=== PATIENT | male | born 1960 | race Caucasian/White ===

== ENCOUNTER 2018-11-11 11:54 | Emergency (ER) | payer OTHER ==
[~2018-11-11] VITALS: Ht 182.9 cm; Wt 103.4 kg
[~2018-11-11 11:54] MED LIST: AMARYL1 MG PO; CLONAZEPAM 1 MG1 M1 PO; FENOFIBRATE160 MG PO; GLUCOPHAGE XR500 MG PO; KOMBIGLYZE XR1 EAC2; NORCO 5-325 TA1 EACH PO; NORTRIPTYLINE H25 M3 PO; PRAVACHOL80 MG; UNICOMPLEX M TA1 TA1
[2018-11-11] MEDS ORDERED: JARDIANCE10 MG PO (12:00)
[2018-11-11 12:19] LABS: ABSOLUTE BASOPHILS 0.1 thou/uL (0.0-0.2); ABSOLUTE EOSINOPHILS 0.3 thou/uL (0.0-0.7); ABSOLUTE LYMPHOCYTES 1.8 thou/uL (0.8-5.3); ABSOLUTE MONOCYTES 0.7 thou/uL (0.0-1.2); ABSOLUTE NEUTROPHILS 4.1 thou/uL (1.6-8.1); BASOPHILS 0.9 %; EOSINOPHILS 3.7 %; HEMATOCRIT 47.1 % (42.0-52.0); HEMOGLOBIN 15.9 gm/dL (14.0-18.0); LYMPHOCYTES 25.9 %; MCH 30.4 pg (26.0-34.0); MCHC 33.7 g/dL (28.0-37.0); MCV 90.4 fL (80.0-100.0); MONOCYTES 9.7 %; MPV 8.2 fl. (7.2-11.1); NUCLEATED RBCS 0 /100WBC; PLATELET COUNT* 234 thou/uL (150-400); POLYS 59.8 %; RBC 5.21 mil/uL (4.50-6.00); RDW-CV 13.7 % (10.5-14.5); WBC 6.9 thou/uL (4.0-11.0)
[2018-11-11 12:31] LABS: PROTIME 10.6 Seconds (9.20-11.50)
[2018-11-11 12:35] LABS: ANION GAP 11 mmol/L (7-16); BUN 23 mg/dL (7-18); CALCIUM 9.5 mg/dL (8.5-10.1); CHLORIDE 105 mmol/L (98-107); CO2 23 mmol/L (21-32); CREATININE 1.3 mg/dL (0.6-1.3); GLUCOSE 147 mg/dL (70-99); SODIUM 139 mmol/L (136-145)
[2018-11-11 12:43] LABS: ALBUMIN 4.2 g/dL (3.4-5.0); ALKALINE PHOSPHATASE 45 U/L (46-116); LIPASE 516 U/L (73-393); NT-PRO BRAIN NAT PEPTIDE 10 pg/mL (<300); SGOT 26 U/L (15-37); SGPT 68 U/L (30-65); TOTAL BILIRUBIN 0.5 mg/dL (<0.1-1.0); TOTAL PROTEIN 7.4 g/dL (6.4-8.2); TROPONIN-I LEVEL <0.06 ng/mL (<0.06)
[2018-11-11 14:22] VITALS: BP 146/82
--- NOTE | 2018-11-13 13:08 | EKG ---
[place] [address] ELECTROCARDIOGRAM REPORT Name: CONSTANCE GRECO [id number] Admission: 11/11/18 Attend Phys: Discharge: 11/11/18 Date of : 56 Report #: [id number] THIS REPORT FOR: //name// [facility] ED Test Date: 2018-11-11 Test Time: 11:57:26 Pat Name: CONSTANCE GRECO Department: Room: Gender: M [employer]onics Technician: : 1960 Requested By: Geovanni Valadez Order Number: [id number] MD: Ramu Olivares Measurements Intervals [employer] Rate: 80 P: 48 PA: 160 QRS: -2 QRSD: 91 T: 63 QT: 354 QTc: 409 Interpretive Statements Sinus rhythm Minimal ST elevation, anterior leads Compared to ECG 05/31/2016 22:12:23 no change Electronically Signed On 11-13-2018 13:08:02 CDT by Ramu Olivares [email or web address] <ELECTRONICALLY SIGNED> By: Ramu Olivares MD, [facility] 11/13/18 1308 1157 1157 Ramu Olivares MD, FACC /EPI
== END 2018-11-11 14:23 | disposition home or self-care (01) ==
LOC: M.ERS 11:54
PROVIDERS: Emergency Medicine
DX: R07.89 Other chest pain (principal); F41.9 Anxiety disorder, unspecified; F32.9 Major depressive disorder, single episode, unspecified; E11.9 Type 2 diabetes mellitus without complications; Z90.89 Acquired absence of other organs; Z90.49 Acquired absence of other specified parts of digestive tract; Z86.79 Personal history of other diseases of the circulatory system; Z82.49 Family history of ischemic heart disease and other diseases of the circulatory system

== ENCOUNTER 2019-05-18 11:07 | Inpatient (IN) | payer OTHER ==
[~2019-05-18] VITALS: Ht 182.9 cm; Wt 103.0 kg
[~2019-05-18 11:07] MED LIST changes: +JARDIANCE10 MG PO; -KOMBIGLYZE XR1 EAC2; +KOMBIGLYZE XR1 EAC2 PO; +PRAVACHOL40 MG PO; -PRAVACHOL80 MG
[2019-05-18 11:21] VITALS: BP 143/91
[2019-05-18 11:47] LABS: ABSOLUTE BASOPHILS 0.1 thou/uL (0.0-0.2); ABSOLUTE EOSINOPHILS 0.2 thou/uL (0.0-0.7); ABSOLUTE LYMPHOCYTES 1.8 thou/uL (0.8-5.3); ABSOLUTE MONOCYTES 1.2 thou/uL (0.0-1.2); ABSOLUTE NEUTROPHILS 8.9 thou/uL (1.6-8.1); EOSINOPHILS 1.3 %; HEMATOCRIT 47.1 % (42.0-52.0); HEMOGLOBIN 16.2 gm/dL (14.0-18.0); LYMPHOCYTES 14.4 %; MCH 30.8 pg (26.0-34.0); MCHC 34.3 g/dL (28.0-37.0); MCV 89.8 fL (80.0-100.0); MONOCYTES 9.8 %; MPV 8.4 fl. (7.2-11.1); NUCLEATED RBCS 0 /100WBC; PLATELET COUNT* 229 thou/uL (150-400); POLYS 73.5 %; RBC 5.25 mil/uL (4.50-6.00); RDW-CV 13.4 % (10.5-14.5); WBC 12.2 thou/uL (4.0-11.0)
[2019-05-18 11:57] LABS: CALCIUM 9.2 mg/dL (8.5-10.1); CREATININE 1.4 mg/dL (0.6-1.3)
[2019-05-18 12:02] LABS: TOTAL BILIRUBIN 0.6 mg/dL (<0.1-1.0); TOTAL PROTEIN 8.2 g/dL (6.4-8.2)
[2019-05-18 13:32] VITALS: BP 137/77
[2019-05-18 13:58] VITALS: BP 115/76
[2019-05-18 16:00] VITALS: BP 118/75
[2019-05-18 20:00] VITALS: BP 115/69
[2019-05-19 04:06] LABS: ABSOLUTE BASOPHILS 0.1 thou/uL (0.0-0.2); ABSOLUTE EOSINOPHILS 0.2 thou/uL (0.0-0.7); ABSOLUTE LYMPHOCYTES 1.6 thou/uL (0.8-5.3); ABSOLUTE NEUTROPHILS 5.1 thou/uL (1.6-8.1); BASOPHILS 0.8 %; EOSINOPHILS 2.7 %; HEMATOCRIT 44.2 % (42.0-52.0); HEMOGLOBIN 15.2 gm/dL (14.0-18.0); MCHC 34.4 g/dL (28.0-37.0); MCV 90.1 fL (80.0-100.0); MPV 8.8 fl. (7.2-11.1); NUCLEATED RBCS 0 /100WBC; PLATELET COUNT* 196 thou/uL (150-400); POLYS 63.5 %; RDW-CV 13.2 % (10.5-14.5)
[2019-05-19 04:41] LABS: CALCIUM 8.3 mg/dL (8.5-10.1); CREATININE 1.3 mg/dL (0.6-1.3); POTASSIUM 4.1 mmol/L (3.5-5.1)
[2019-05-19 05:38] LABS: ESR (SEDRATE) 15 mm/hr (0-20)
[2019-05-19 07:48] VITALS: BP 118/71
--- NOTE | 2019-05-19 12:33 | CON ---
[address] [address] CONSULTATION Name: CONSTANCE GRECO Room: [address] IN .R.#: [id number] Admission: 05/18/19 Attend Phys: Joey Russo MD Discharge: Date of : 56 Report #: [id number] THIS REPORT FOR: //name// cc: Parisa Erazo Tara DO THIS REPORT FOR: //name// CC: Joey Erazo DATE OF SERVICE: 05/19/2019 INFECTIOUS DISEASE CONSULTATION ATTENDING PHYSICIAN: Joey Russo MD REASON FOR EVALUATION: Cat bite injury, complicated by deep right index finger infection with superficial aspect of cellulitis as well. HISTORY OF PRESENT ILLNESS: Chart reviewed and the patient examined. This is a 58-year-old gentleman with diabetes mellitus, sustained injury as a result of a cat bite on 05/16/2019. By evening and Tuesday, it became quite clear that there was increasing inflammation. He had been seen as an outpatient and started on Augmentin. In spite of that, he had progression and subsequently admitted due to concern about deeper infection. He did undergo operative debridement today and results are pending. Blood cultures are sterile thus far. He was started empirically on piperacillin and tazobactam. He did have some low-grade temperature elevations which have not been apparent here. He denies any significant pulmonary or gastrointestinal related complaints. He is lucid. ALLERGIES: None known. CURRENT MEDICATIONS: Include pantoprazole, insulin, fenofibrate, enoxaparin, Zosyn, p.r.n. analgesics and antiemetics. PAST MEDICAL HISTORY: Includes diabetes mellitus type 2, history of anxiety, depression, and previous cholecystectomy. SOCIAL HISTORY: Nonsmoker. No ethanol. No illicit drug use. FAMILY HISTORY: Noncontributory. REVIEW OF SYSTEMS: Otherwise, unremarkable 10-point review of systems. PHYSICAL EXAMINATION: [place] [address] CONSULTATION Name: CONSTANCE GRECO Room: [address]#: [id number] Admission: 05/18/19 Attend Phys: Joey Russo MD Discharge: Date of : 56 Report #: [id number] GENERAL: He is alert, cooperative, and appropriate. He appears to be generally well nourished. He is in mild distress secondary to his finger pain. Adequately nourished. VITAL SIGNS: Temperature 98.1, pulse 81, respirations 17, and blood pressure 118/71. SKIN: Warm and dry. No rashes. HEENT: Normocephalic. Extraocular muscles intact. NECK: Supple. LUNGS: Clear to auscultation bilaterally. HEART: Regular. I do not appreciate murmur. ABDOMEN: Soft, nontender, and nondistended. He is obese. Right index finger has a surgical dressing in place. There is a moderate degree of inflammation noted proximal to that with some erythema evidence as well as edema. Slightly tender up into the forearm. GENITOURINARY AND RECTAL: Deferred. LABORATORY DATA: Blood cultures sterile thus far. CBC: White count of 8.0, H and H 15.2 and 44.2, and platelets of 196. Sed rate of 15. Electrolytes: Sodium 142, potassium 4.1, chloride 107, bicarbonate is 25, anion gap of 10, BUN and creatinine of 17 and 1.3, and estimated GFR of 56. Plain film of the hand showed no osseous abnormalities or foreign body. Lactic acid initially was 1.1. Liver functions otherwise unremarkable except for the ALT slightly elevated at 66 and upper limits normal being 65. Albumin of 4.0 and total protein of 8.2. ASSESSMENT AND PLAN: Cat bite injury, complicated by infection. We will continue parenteral therapy and see how he does over the course of next 24-48 hours with adequate drainage. He may well be treated satisfactorily with oral antibiotics, specifically Augmentin and see how he does clinically. <ELECTRONICALLY SIGNED> By: Frederick Henry MD 05/19/19 1233 [id number] Henry MD /nt
[2019-05-19 16:00] VITALS: BP 141/73
[2019-05-19 19:55] VITALS: BP 117/78
[2019-05-20 07:42] VITALS: BP 115/71
[2019-05-20 16:00] VITALS: BP 133/73
[2019-05-20 20:26] VITALS: BP 119/81
[2019-05-21 04:01] LABS: ABSOLUTE EOSINOPHILS 0.2 thou/uL (0.0-0.7); ABSOLUTE LYMPHOCYTES 1.6 thou/uL (0.8-5.3); ABSOLUTE MONOCYTES 0.5 thou/uL (0.0-1.2); ABSOLUTE NEUTROPHILS 3.1 thou/uL (1.6-8.1); BASOPHILS 0.9 %; EOSINOPHILS 3.5 %; HEMOGLOBIN 14.4 gm/dL (14.0-18.0); LYMPHOCYTES 29.6 %; MCH 30.6 pg (26.0-34.0); MCHC 34.3 g/dL (28.0-37.0); MCV 89.2 fL (80.0-100.0); MPV 8.4 fl. (7.2-11.1); NUCLEATED RBCS 0 /100WBC; PLATELET COUNT* 218 thou/uL (150-400); RDW-CV 12.9 % (10.5-14.5); WBC 5.5 thou/uL (4.0-11.0)
[2019-05-21 04:09] LABS: CALCIUM 8.6 mg/dL (8.5-10.1); CREATININE 1.2 mg/dL (0.6-1.3); POTASSIUM 3.8 mmol/L (3.5-5.1)
[2019-05-21 08:36] VITALS: BP 117/82
[2019-05-21] MEDS ORDERED: PAIN & FEVER325 MG PO (12:38)
[2019-05-21] MEDS ORDERED: AUGMENTIN 875-1 EACH PO (12:38)
[2019-05-21 12:48] VITALS: BP 117/82
[2019-05-21 12:52] VITALS: BP 117/82
[2019-05-21 14:02] VITALS: BP 117/82
[2019-05-21 15:46] VITALS: BP 117/82
[2019-05-21 15:55] VITALS: BP 117/82
== END 2019-05-21 15:55 | disposition home or self-care (01) | DRG 604 ==
LOC: M.ERS 11:07 → M.3W 12:41 → M.TBA-ER 12:41 → M.3W 13:40
PROVIDERS: Orthopaedic Surgery; Physician Assistant; ADMIT Internal Medicine
PROC: 0J9J3ZZ Drainage of Right Hand Subcutaneous Tissue and Fascia, Percutaneous Approach (ICD-10-PCS; principal; 2019-05-19)
DX: S61.250A Open bite of right index finger without damage to nail, initial encounter (principal); R65.11 Systemic inflammatory response syndrome (SIRS) of non-infectious origin with acute organ dysfunction; N17.9 Acute kidney failure, unspecified; L02.511 Cutaneous abscess of right hand; I88.9 Nonspecific lymphadenitis, unspecified; L03.011 Cellulitis of right finger; F41.9 Anxiety disorder, unspecified; F32.9 Major depressive disorder, single episode, unspecified; E86.0 Dehydration; E11.65 Type 2 diabetes mellitus with hyperglycemia; W55.01XA Bitten by cat, initial encounter; Y93.89 Activity, other specified; Y92.89 Other specified places as the place of occurrence of the external cause; Y99.8 Other external cause status; Z79.4 Long term (current) use of insulin; Z90.49 Acquired absence of other specified parts of digestive tract; Z79.899 Other long term (current) drug therapy; Z28.21 Immunization not carried out because of patient refusal

== ENCOUNTER → 2020-10-08 | Outpatient (CLI) | payer OTHER ==
[~2020-10-08] MED LIST changes: +AUGMENTIN 875-1 EACH PO; +PAIN & FEVER325 MG PO
== END ==
LOC: M.ULTRA 08:00
PROVIDERS: ATTEND Nurse Practitioner Family
DX: K76.0 Fatty (change of) liver, not elsewhere classified (principal); N28.1 Cyst of kidney, acquired; R16.1 Splenomegaly, not elsewhere classified; R10.9 Unspecified abdominal pain; E78.1 Pure hyperglyceridemia; R79.89 Other specified abnormal findings of blood chemistry; Z90.49 Acquired absence of other specified parts of digestive tract